=== PATIENT | female | born 1950 | race Caucasian/White ===

== ENCOUNTER → 2017-11-29 | Outpatient (CLI) | payer OTHER, BC ==
[~2017-11-29] MED LIST: TYROSINE; VITAMIN B-1250 MC1; VITAMIN D10000 UNIT
== END | disposition home or self-care (01) ==
LOC: SONOGRAMA 10:20
DX: N84.0 Polyp of corpus uteri (principal); E03.8 Other specified hypothyroidism; N85.01 Benign endometrial hyperplasia; E04.9 Nontoxic goiter, unspecified

== ENCOUNTER 2018-05-23 08:01 | Outpatient (CLI) | payer OTHER, BC | END 2018-05-23 08:04 | disposition home or self-care (01) | LOC: MAMO-SONO 08:01 | DX: Z12.31 Encounter for screening mammogram for malignant neoplasm of breast (principal); Z87.898 Personal history of other specified conditions; N64.4 Mastodynia ==

== ENCOUNTER 2018-06-12 10:15 | Outpatient (CLI) | payer OTHER, BC | END 2018-06-12 15:28 | disposition home or self-care (01) | LOC: SONOGRAMA 10:15 → MAMO-SONO 13:45 → SONOGRAMA 15:28 | DX: N84.0 Polyp of corpus uteri (principal) ==

== ENCOUNTER 2018-06-25 07:23 | Outpatient (CLI) | payer OTHER, BC | END 2018-06-25 07:26 | disposition home or self-care (01) | LOC: SONOGRAMA 07:23 | DX: E04.1 Nontoxic single thyroid nodule (principal) ==

== ENCOUNTER 2021-02-07 08:17 | Outpatient (CLI) | payer OTHER | END 2021-02-07 08:22 | disposition home or self-care (01) | LOC: SONOGRAMA 08:17 | PROVIDERS: ATTEND Pathology Anatomic Pathology & Clinical Pathology | DX: D34 Benign neoplasm of thyroid gland (principal); E07.89 Other specified disorders of thyroid ==

== ENCOUNTER 2024-09-22 08:19 | Outpatient (CLI) | payer OTHER | END 2024-09-22 08:21 | disposition home or self-care (01) | LOC: SONOGRAMA 08:19 | PROVIDERS: ATTEND Pathology Anatomic Pathology & Clinical Pathology | DX: D34 Benign neoplasm of thyroid gland (principal); E06.3 Autoimmune thyroiditis; E04.1 Nontoxic single thyroid nodule ==